=== PATIENT | female | born 1970 | race Caucasian/White ===

== ENCOUNTER → 2017-04-03 | Outpatient (CLI) | payer BC, OTHER ==
[~2017-04-03] MED LIST: ENLP10T PO; HCTZ12.5T PO; NAPR-243 PO; TRAZ-144 PO
--- NOTE | 2017-04-09 12:18 | Diagnostic Imaging Report ---
Bilateral screening mammogram 2D views with tomosynthesis The current study was also evaluated with a Computer Aided Detection (CAD) system. Indication: Screening. No current complaints stated on the questionnaire. COMPARISON: 09/09/14 Findings: The breasts are composed of scattered fibroglandular densities. Punctate calcification is seen in the right breast. Allowing for technique and positional differences, no suspicious change is seen. IMPRESSION: No significant change. ACR BI-RADS Category 2: Benign findings. Result letter will be mailed to the patient. Note: At least 10% of breast cancer is not imaged by mammography. Dictated by: Dictated on workstation # [id number]
== END ==
LOC: RAD 10:02
PROVIDERS: ATTEND Family Medicine
DX: Z12.31 Encounter for screening mammogram for malignant neoplasm of breast (principal)
CPT/HCPCS: 77067

== ENCOUNTER → 2017-04-21 | Outpatient (CLI) | payer OTHER ==
--- NOTE | 2017-04-21 16:41 | Diagnostic Imaging Report ---
PROCEDURE: MRI left joint lower extremity without contrast. TECHNIQUE: A multiplanar/multisequence noncontrast enhanced MRI of the left lower extremity was accomplished. INDICATION: Left knee pain. FINDINGS: There is a small suprapatellar effusion. The extensor mechanism is intact. The ACL and PCL appear unremarkable. There is a horizontal tear involving the anterior horn and body of the lateral meniscus with a prominent parameniscal cyst with septations measuring 1.9 x 1 x 3.4 cm insinuating deep to the components of the lateral collateral ligament complex which otherwise appears intact. The MCL appears intact. The medial meniscus demonstrates no tear. There is a subchondral focal area of edema in the lateral tibial plateau with associated fissuring of the cartilage in the lateral compartment. There is a 25% diffuse thinning of the cartilage in the medial compartment. There is 50% cartilage thinning in the lateral facet of the patella. There is no Hutson's cyst. IMPRESSION: 1. Horizontal tear involving the anterior horn and body of the lateral meniscus with a prominent septated parameniscal cyst. 2. Mild tricompartmental osteoarthritis. Dictated by: Dictated on workstation # [id number]
== END ==
LOC: RAD 15:06
PROVIDERS: ATTEND Nurse Practitioner
DX: S83.282A Other tear of lateral meniscus, current injury, left knee, initial encounter (principal); M23.042 Cystic meniscus, anterior horn of lateral meniscus, left knee; X58.XXXA Exposure to other specified factors, initial encounter; Y99.8 Other external cause status
CPT/HCPCS: 73721

== ENCOUNTER → 2019-02-23 | Outpatient (CLI) | payer OTHER ==
--- NOTE | 2019-02-24 09:03 | Diagnostic Imaging Report ---
Digital mammogram. Bilateral screening with 3 tomosynthesis and CAD. The study was compared to prior exams of 04/03/2017 and 09/09/2014. At this time there are no current complaints. The current study was also evaluated with a Computer Aided Detection (CAD) system. FINDINGS: There are scattered fibroglandular densities in both breasts which could obscure a lesion. Overall, there does not appear to have been any significant change when compared to the prior exam. No primary or secondary sign of malignancy is noted. IMPRESSION: There is no radiographic evidence for malignancy. ACR BI-RADS Category 1: Negative. Result letter will be mailed to the patient. Note: At least 10% of breast cancer is not imaged by mammography. Dictated by: Dictated on workstation # [id number]
== END ==
LOC: RAD 09:04
PROVIDERS: ATTEND Family Medicine
DX: Z12.31 Encounter for screening mammogram for malignant neoplasm of breast (principal)
CPT/HCPCS: 77067

== ENCOUNTER → 2020-03-14 | Outpatient (CLI) | payer OTHER ==
--- NOTE | 2020-03-14 12:53 | Diagnostic Imaging Report ---
INDICATION: Routine screening. Comparison is made with prior mammogram from 02/23/2019 and 04/03/2017. 2-D and 3-D bilateral screening mammography was performed with CAD. Both breasts are heterogeneously dense, limiting the sensitivity of mammography. The parenchymal pattern is stable. No mass or malignant appearing microcalcifications are seen. Axillae are unremarkable. IMPRESSION: BI-RADS Category 1 No mammographic features suspicious for malignancy are identified. ACR BI-RADS Category 1: Negative. Result letter will be mailed to the patient. Note: At least 10% of breast cancer is not imaged by mammography. Dictated by: Dictated on workstation # [id number]
== END ==
LOC: RAD 08:30
PROVIDERS: ATTEND Family Medicine
DX: Z12.31 Encounter for screening mammogram for malignant neoplasm of breast (principal)
CPT/HCPCS: 77063; 77067

== ENCOUNTER → 2021-04-06 | Outpatient (CLI) | payer OTHER ==
--- NOTE | 2021-04-06 10:31 | Diagnostic Imaging Report ---
INDICATION: 2-D and 3-D digital screening with CAD. COMPARED: 02/2020, 02/2019 and 03/2017 FINDINGS: Scattered fibroglandular densities in the breast with no breast mass, spiculated lesion, architectural distortion, suspicious calcifications or interval changes. IMPRESSION: Stable negative mammogram BI-RADS Category 1 ACR BI-RADS Category 1: Negative. Result letter will be mailed to the patient. Note: At least 10% of breast cancer is not imaged by mammography. Dictated by: Dictated on workstation # [id number]
== END ==
LOC: RAD 09:00
PROVIDERS: ATTEND Family Medicine
DX: Z12.31 Encounter for screening mammogram for malignant neoplasm of breast (principal)
CPT/HCPCS: 77063; 77067

== ENCOUNTER → 2022-10-03 | Outpatient (CLI) | payer OTHER ==
--- NOTE | 2022-10-03 19:00 | Diagnostic Imaging Report ---
EXAMINATION: Right knee radiographs, 3 views. COMPARISON: None. HISTORY: 51-year-old female, right knee pain. FINDINGS: There is no identified acute fracture. There is no knee joint effusion. The joint spaces are well preserved. There is no identified bone lesion. IMPRESSION: Unremarkable radiographs of the right knee. Dictated by: Dictated on workstation # [id number]
== END ==
LOC: RAD 09:58
PROVIDERS: ATTEND Family Medicine
DX: M25.561 Pain in right knee (principal)
CPT/HCPCS: 73562

== ENCOUNTER → 2023-07-22 | Outpatient (CLI) | payer BC ==
--- NOTE | 2023-07-22 14:33 | Diagnostic Imaging Report ---
Indication: Routine screening. Comparison is made with prior mammogram 04/06/2021 and 03/14/2020. 2-D and 3-D bilateral screening mammography was performed with CAD. The current study was also evaluated with a Computer Aided Detection (CAD) system. Scattered fibroglandular densities are identified bilaterally. The parenchymal pattern is stable. No mass or malignant-appearing microcalcifications are seen. Axillae are unremarkable. IMPRESSION: BI-RADS Category 1 No mammographic features suspicious for malignancy are identified. ACR BI-RADS Category 1: Negative. Result letter will be mailed to the patient. Note: At least 10% of breast cancer is not imaged by mammography. Dictated by: Dictated on workstation # [id number]
== END ==
LOC: RAD 09:05
PROVIDERS: ATTEND Family Medicine
DX: Z12.31 Encounter for screening mammogram for malignant neoplasm of breast (principal)
CPT/HCPCS: 77063; 77067